=== PATIENT | female | born 1985 | race Caucasian/White ===

== ENCOUNTER 2017-03-25 13:10 | Emergency (ER) | payer OTHER ==
[~2017-03-25] VITALS: Ht 160 cm; Wt 68.0 kg
[~2017-03-25 13:10] MED LIST: ACET500C4 PO; ACHD5005 PO; ALPR.25T PO; ALPR1T PO; AMIT100T2 PO; AMIT25TA9 PO; AZIT-21 PO; BENZ100C18 PO; BSP5T; CEPH500C PO; CIPR7.5D2 RIGHT EAR; CLIN-62 PO; CYCL10TA9 PO; DCS100C PO; DICL75TA2 PO; DIPH25TA82 PO; DIPH50CA PO; DOXY100C2 PO; ESCI20TA2 PO; FAMO20TA5 PO; FLC100T1 PO; GLBR2.5T PO; GLYB5TAB6 PO; GUAI-653 PO; HUM100VI14 SQ; HYDR-2997 PO; HYDR-34 PO; HYDR-3820 PO; HYDR-700 PO; HYDR-757 PO; HYDR118S10 PO; HYDR1TAB8 PO; IBP600T1 PO; IBP800T PO; IBUP-1773 PO; INSA10V SC; INSASP10V SC; INSASP10V SQ; INSHRV SC; INSR1U SC; INSU100I10 SQ; INSU100I14 SQ; INSU100V13 SC; INSU100V6 SQ; METH4TAB PO; METR500T PO; MIRT15TA6 PO; NAPR-243 PO; NAPR500T PO; NAPR500T72 PO; NF-ESOM40C PO; NITR100C3 PO; ONDA4TAB11 PO; ONDA8TAB9 PO; ONDAN4ODT PO; ONDN4T PO; OSLT75C PO; PHEN200T27 PO; PRD20T PO; PREN1TAB14 PO; PRENATAL VITAMINS; PRM25T PO; QTP200T PO; QUET100T PO; QUET400T PO; QUET50TA43 PO; QUET50TA55 PO; RANI150T90 PO; RISP1TAB19 PO; SCR1T1 PO; SULF-222 PO; SULF1TAB35 PO; TRIA16.5 NS; VARE1TAB22 PO; [UNRECOGNIZED DRUG - OTHER]
[2017-03-25 14:34] LABS: BASOPHILS # (AUTO) 0.1 10^3/uL (0.0-0.1); BASOPHILS % (AUTO) 1 % (0-10); EOSINOPHILS # (AUTO) 0.2 10^3/uL (0.0-0.3); EOSINOPHILS % (AUTO) 2 % (0-10); LYMPHOCYTES # (AUTO) 2.1 X 10^3 (1.0-4.0); LYMPHOCYTES % (AUTO) 22 % (12-44); MEAN CORPUSCULAR HEMOGLOBIN 31 PG (25-34); MEAN CORPUSCULAR HGB CONC 36 G/DL (32-36); MEAN CORPUSCULAR VOLUME 85 FL (80-99); MEAN PLATELET VOLUME 12.1 FL (7.4-10.4); MONOCYTES # (AUTO) 0.6 X 10^3 (0.0-1.0); MONOCYTES % (AUTO) 6 % (0-12); NEUTROPHILS # (AUTO) 6.8 X 10^3 (1.8-7.8); NEUTROPHILS % (AUTO) 70 % (42-75); PLATELET COUNT 183 10^3/uL (130-400); RED BLOOD COUNT 4.82 10^6/uL (4.35-5.85); RED CELL DISTRIBUTION WIDTH 12.4 % (10.0-14.5); WHITE BLOOD COUNT 9.7 10^3/uL (4.3-11.0)
[2017-03-25 14:49] LABS: ALANINE AMINOTRANSFERASE 35 U/L (0-55); ALBUMIN 3.7 GM/DL (3.2-4.5); ANION GAP 7 MMOL/L (5-14); ASPARTATE AMINO TRANSFERASE 31 U/L (5-34); BILIRUBIN,TOTAL 0.5 MG/DL (0.1-1.0); BLOOD UREA NITROGEN 4 MG/DL (7-18); BUN/CREATININE RATIO 5; CALCIUM 8.5 MG/DL (8.5-10.1); CARBON DIOXIDE 26 MMOL/L (21-32); CHLORIDE 106 MMOL/L (98-107); CREATININE SERUM 0.74 MG/DL (0.60-1.30); GFR ESTIMATED > 60; GLUCOSE 123 MG/DL (70-105); POTASSIUM 3.5 MMOL/L (3.6-5.0); SODIUM 139 MMOL/L (135-145); TOTAL PROTEIN 7.6 GM/DL (6.4-8.2)
[2017-03-25 14:54] LABS: ERYTHROCYTE SEDIMENTATION RATE 12 MM/HR (0-20)
--- NOTE | 2017-03-25 15:43 | ED General ---
General Chief Complaint: General Problems/Pain Stated Complaint: RT ELBOW PAIN/KNOTS IN LEGS Nursing Triage Note: ARRIVED VIA AMB TO ROOM 03. COMPLAINTS OF RIGHT ELBOW PAIN FOR 2 MONTHS AND KNOTS ON HER LEGS THIS PAST MONTH. STATES SHE CALLED HER DR'S OFFICE WHOM TOLD HER TO COME TO THE ER SINCE SHE IS DIABETIC. Nursing Sepsis Screen: No Definite Risk Source of Information: Patient Exam Limitations: No Limitations History of Present Illness Time Seen by Provider: 15:38 Initial Comments The patient is a 32-year-old white female who presents today with complaints of pain in her right shoulder which has been present for several months. She recalls no specific injury. She notes some increase in pain from the elbow to the shoulder and with numbness which awakens her from sleep. She states that approximately one month ago she had a lesion on her left anterior haddad. She states that she was told this was a spider bite by critical access hospital and she was treated with antibiotics. She is continued to have a bumpy texture to the subcutaneous skin and believes that has moved further up the leg. She also states that her left leg swells increasingly during the day and then goes down at night when she is supine in bed. She states she is diabetic. Timing/Duration: Other Allergies and Home Medications Allergies Coded Allergies: Penicillins (Verified Allergy, Unknown, RECEIVED ROCEPHIN W/O PROBLEMS, ) PT STATES SHE LOSES HER AIRWAY WHEN GIVEN PCN Home Medications Cyclobenzaprine HCl 10 Mg Tablet, 10 MG PO Q8H PRN for SPASMS, #14 Ref 0 Prescribed by: FAMILIA FELIX on 06/14/161556 Hydrocodone/Acetaminophen 1 Each Tablet, 2 TAB PO TID PRN for PAIN, (Reported) Insulin Aspart 300 Units/3 Ml Solution, SQ UD, (Reported) USES PER SLIDING SCALE Insulin Glargine,Hum.rec.anlog 100 Unit/1 Ml Insuln.pen, 20 UNITS SQ HS, ( Reported) Naproxen 500 Mg Tablet, 500 MG PO BID PRN for PAIN, #20 Ref 0 Prescribed by: FAMILIA FELIX on 06/14/16 1557 Quetiapine Fumarate 100 Mg Tablet, 100 MG PO HS, (Reported) Constitutional: see HPI EENTM: no symptoms reported Respiratory: no symptoms reported Cardiovascular: no symptoms reported Gastrointestinal: no symptoms reported Genitourinary: no symptoms reported Musculoskeletal: see HPI, joint pain (right shoulder) Skin: lumps Psychiatric/Neurological: No Symptoms Reported Past Hbdyrls-Kufchl-Osakku Hx Patient Social History Alcohol Use: Past History Recreational Drug Use: Yes (Marijuana +) Type Used: Cigarettes Recent Foreign Travel: No Contact w/Someone Who Travel: No Recent Infectious Disease Expo: No Recent Hopitalizations: Yes (WHEN BROKE WRIST; ENTERITIS) Immunizations Up To Date Tetanus Booster (TDap): Unknown Date of Pneumonia Vaccine: Jun 29, 2012 Date of Influenza Vaccine: Apr 12, 2015 Seasonal Allergies Seasonal Allergies: No Surgeries History of Surgeries: Yes (cyst removal, LAP RIGHT REMOVAL OF ADRENAL MASS, RIGHT OPHORECTOMY) Surgeries: Section, Gallbladder Respiratory History of Respiratory Disorde: Yes (ASTHMA) Respiratory Disorders: Asthma Currently Using CPAP: No Currently Using BIPAP: No Cardiovascular History of Cardiac Disorders: No (MURMUR CHILD) Neurological History of Neurological Disord: Yes ("nerve pain") Reproductive System Hx Reproductive Disorders: No Sexually Transmitted Disease: No HIV/AIDS: No Female Reproductive Disorders: Ovarian Cyst Genitourinary Genitourinary Disorders: UTI-Chronic Gastrointestinal History of Gastrointestinal Di: Yes Gastrointestinal Disorders: Gastroesophageal Reflux, Hepatitis Musculoskeletal History of Musculoskeletal Dis: No Musculoskeletal Disorders: Arthritis Endocrine History of Endocrine Disorders: Yes Endocrine Disorders: Diabetes, Insulin dep HEENT Loss of Vision: Denies Hearing Impairment: Denies Cancer History of Cancer: Yes Cancer: Skin Psychosocial History of Psychiatric Problem: Yes (history of substance abuse) Behavioral Health Disorders: Anxiety, Bipolar Integumentary History of Skin or Integumenta: No Blood Transfusions History of Blood Disorders: Yes (ANEMIA/HEPATITIS C ) Adverse Reaction to a Blood Tr: No Family Medical History Significant Family History: No Pertinent Family Hx, Diabetes Family Medial History: Asthma 19 FATHER (COPD) G8 BROTHER (COPD) Completed stroke G8 SISTER Diabetes mellitus 19 FATHER 19 MOTHER G8 BROTHER G8 SISTER Gout 19 MOTHER Seizure disorder G8 SISTER Physical Exam Vital Signs Vital Sign - Last 12Hours 03/25/17 13:19 Temp 98.0 Pulse 103 Resp 18 B/P (MAP) 118/81 Pulse Ox 98 Capillary Refill : Less Than 3 Seconds General Appearance: Mild Distress Eyes: Bilateral Eye Normal Inspection HEENT: Normal ENT Inspection Neck: Full Range of Motion, Normal Inspection, Non Tender, Supple, Carotid Bruit Respiratory: Chest Non Tender Cardiovascular: Regular Rate, Rhythm, No Edema, No Gallop, No JVD, No Murmur, Normal Peripheral Pulses Comments There is pain to passive abduction of the right shoulder. Crepitus is noted. This is particularly evident after reaching 80. The left haddad shows a very modest edema and a faint pinkish discoloration. No discrete lumps are noted. No scars are noted. The patient reports tenderness to palpation. No streaking or warmth is noted. Progress/Results/Core Measures Results/Orders Lab Results Laboratory Tests Test 03/25/17 14:25 Range/Units White Blood Count 9.7 4.3-11.0 10^3/uL Red Blood Count 4.82 4.35-5.85 10^6/uL Hemoglobin 14.7 11.5-16.0 G/DL Hematocrit 41 35-52 % Mean Corpuscular Volume 85 80-99 FL Mean Corpuscular Hemoglobin 31 25-34 PG Mean Corpuscular Hemoglobin Concent 36 32-36 G/DL Red Cell Distribution Width 12.4 10.0-14.5 % Platelet Count 183 130-400 10^3/uL Mean Platelet Volume 12.1 H 7.4-10.4 FL Neutrophils (%) (Auto) 70 42-75 % Lymphocytes (%) (Auto) 22 12-44 % Monocytes (%) (Auto) 6 0-12 % Eosinophils (%) (Auto) 2 0-10 % Basophils (%) (Auto) 1 0-10 % Neutrophils # (Auto) 6.8 1.8-7.8 X 10^3 Lymphocytes # (Auto) 2.1 1.0-4.0 X 10^3 Monocytes # (Auto) 0.6 0.0-1.0 X 10^3 Eosinophils # (Auto) 0.2 0.0-0.3 10^3/uL Basophils # (Auto) 0.1 0.0-0.1 10^3/uL Erythrocyte Sedimentation Rate 12 0-20 MM/HR Sodium Level 139 135-145 MMOL/L Potassium Level 3.5 L 3.6-5.0 MMOL/L Chloride Level 106 98-107 MMOL/L Carbon Dioxide Level 26 21-32 MMOL/L Anion Gap 7 5-14 MMOL/L Blood Urea Nitrogen 4 L 7-18 MG/DL Creatinine 0.74 0.60-1.30 MG/DL Estimat Glomerular Filtration Rate > 60 BUN/Creatinine Ratio 5 Glucose Level 123 H 70-105 MG/DL Calcium Level 8.5 8.5-10.1 MG/DL Total Bilirubin 0.5 0.1-1.0 MG/DL Aspartate Amino Transf (AST/SGOT) 31 5-34 U/L Alanine Aminotransferase (ALT/SGPT) 35 0-55 U/L Alkaline Phosphatase 67 40-136 U/L Total Protein 7.6 6.4-8.2 GM/DL Albumin 3.7 3.2-4.5 GM/DL My Orders Orders - SALLY FINE MD Cbc With Automated Diff (03/25/17 14:05) Comprehensive Metabolic Panel (03/25/17 14:05) Erythrocyte Sedimentation Rate (03/25/17 14:05) Shoulder, Right, 3 Views (03/25/17 15:35) Vital Signs/I&O Vital Sign - Last 12Hours 03/25/17 13:19 Temp 98.0 Pulse 103 Resp 18 B/P (MAP) 118/81 Pulse Ox 98 Blood Pressure Mean: 93 Departure Impression Impression: Primary Impression: shoulder impingement, right Additional Impression: venous stasis edema left lower extremity Disposition: 01 HOME, SELF-CARE Condition: Stable/Unchanged Departure-Patient Inst. Decision time for Depature: 16:10 Referrals: [facility] (PCP/Family) Primary Care Physician Patient Instructions: CHRONIC PAIN Add. Discharge Instructions: All discharge instructions reviewed with patient and/or family. Voiced understanding Obtain and use support stockings. Place them immediately on arising in the morning and remove at bedtime. Make appointment at critical access hospital for consideration of a cortisone injection in the right shoulder. SALLY FINE MD Mar 25, 2017 15:43
--- NOTE | 2017-03-25 16:06 | Diagnostic Imaging Report ---
INDICATION: Right shoulder pain for two weeks. FINDINGS: Four views of the right shoulder show no fracture, dislocation, or other acute abnormalities. IMPRESSION: Negative right shoulder. Dictated by: Dictated on workstation # [id number]
[2017-03-25 16:32] VITALS: BP 115/79
== END 2017-03-25 16:32 | disposition home or self-care (01) ==
LOC: EDUNIT# 13:10 → ER 13:13
DX: M25.811 Other specified joint disorders, right shoulder (principal); I87.009 Postthrombotic syndrome without complications of unspecified extremity; F41.9 Anxiety disorder, unspecified; F31.9 Bipolar disorder, unspecified; E11.9 Type 2 diabetes mellitus without complications; K21.9 Gastro-esophageal reflux disease without esophagitis; J45.909 Unspecified asthma, uncomplicated; F12.90 Cannabis use, unspecified, uncomplicated; Z87.42 Personal history of other diseases of the female genital tract; Z87.19 Personal history of other diseases of the digestive system; Z85.828 Personal history of other malignant neoplasm of skin; Z98.51 Tubal ligation status; Z90.721 Acquired absence of ovaries, unilateral
CPT/HCPCS: 36415; 73030; 80053; 85025; 85652; 99281

== ENCOUNTER → 2017-04-22 | Outpatient (CLI) | payer OTHER ==
--- NOTE | 2017-04-22 14:45 | Diagnostic Imaging Report ---
PROCEDURE: US left lower extremity venous. TECHNIQUE: Multiple real-time grayscale images were obtained over the left lower extremity in various projections. Additional duplex Doppler and color Doppler images were also obtained. INDICATION: EXAMINATION: Left lower extremity duplex venous ultrasound. TECHNIQUE: DVT protocol. Multiple sonographic images with color Doppler and waveform interrogation were performed of the left lower extremity veins with compression and augmentation maneuvers. INDICATION: Left leg swelling. FINDINGS: The left lower extremity veins from the groin to below the knee veins were examined with normal color-flow, compressibility and waveform demonstrated. IMPRESSION: No evidence of DVT in the left lower extremity. Dictated by: Dictated on workstation # [id number]
== END ==
LOC: RAD 13:45
PROVIDERS: ATTEND Nurse Practitioner Family
DX: M79.89 Other specified soft tissue disorders (principal)

== ENCOUNTER 2017-12-26 08:29 | Emergency (ER) | payer OTHER ==
[~2017-12-26] VITALS: Ht 165.1 cm; Wt 69.4 kg
[~2017-12-26 08:29] MED LIST changes: +NAPR-1071 PO; -NAPR500T PO
[2017-12-26] MEDS ORDERED: NS IV 1000 ML 1,000 ML IV ONE (09:17)
[2017-12-26] MEDS ORDERED: ONDANSETRON 4 MG/2 ML (SDV) Z0FRAN IVP ONE (09:30)
[2017-12-26 09:43] LABS: BASOPHILS # (AUTO) 0.1 10^3/uL (0.0-0.1); BASOPHILS % (AUTO) 1 % (0-10); EOSINOPHILS # (AUTO) 0.1 10^3/uL (0.0-0.3); EOSINOPHILS % (AUTO) 1 % (0-10); HEMATOCRIT 39 % (35-52); LYMPHOCYTES # (AUTO) 2.1 X 10^3 (1.0-4.0); LYMPHOCYTES % (AUTO) 20 % (12-44); MEAN CORPUSCULAR HEMOGLOBIN 33 PG (25-34); MEAN CORPUSCULAR HGB CONC 39 G/DL (32-36); MEAN CORPUSCULAR VOLUME 86 FL (80-99); MEAN PLATELET VOLUME 13.2 FL (7.4-10.4); MONOCYTES # (AUTO) 0.7 X 10^3 (0.0-1.0); MONOCYTES % (AUTO) 7 % (0-12); NEUTROPHILS # (AUTO) 7.5 X 10^3 (1.8-7.8); NEUTROPHILS % (AUTO) 72 % (42-75); PLATELET COUNT 145 10^3/uL (130-400); RED BLOOD COUNT 4.53 10^6/uL (4.35-5.85); RED CELL DISTRIBUTION WIDTH 12.1 % (10.0-14.5); WHITE BLOOD COUNT 10.4 10^3/uL (4.3-11.0)
[2017-12-26 10:02] LABS: ALANINE AMINOTRANSFERASE 45 U/L (0-55); ALBUMIN 3.8 GM/DL (3.2-4.5); ALKALINE PHOSPHATASE 64 U/L (40-136); BILIRUBIN,TOTAL 1.1 MG/DL (0.1-1.0); BUN/CREATININE RATIO 10; CALCIUM 9.3 MG/DL (8.5-10.1); CARBON DIOXIDE 21 MMOL/L (21-32); CHLORIDE 106 MMOL/L (98-107); CREATININE SERUM 0.77 MG/DL (0.60-1.30); GFR ESTIMATED > 60; GLUCOSE 125 MG/DL (70-105); POTASSIUM 3.4 MMOL/L (3.6-5.0); SODIUM 137 MMOL/L (135-145); TOTAL PROTEIN 7.4 GM/DL (6.4-8.2)
--- NOTE | 2017-12-26 10:11 | ED Abdominal Pain ---
General Chief Complaint: Abdominal/GI Problems Stated Complaint: VOMITTING, DIARHEA Nursing Triage Note: TO ROOM C/O ABD PAIN,DIARHEA,VOMITING FOR 2 WEEKS. REPORTS HER BLOOD SUGAR HAS BEEN GOOD. REQUEST WORK NOTE ON DISCHARGE DUE TO SHE LEFT WORK Sepsis Screen: No Definite Risk Source of Information: Patient Exam Limitations: No Limitations History of Present Illness Date Seen by Provider: Dec 26, 2017 Time Seen by Provider: 09:10 Initial Comments Here with report of abdominal pain, vomiting, diarrhea and overall not feeling well for the last 2 weeks. She was seen by her work doctor on Thursday and had labs drawn. Apparently her white blood cell count was elevated. Pain continued as well as vomiting and diarrhea through today. She called the work doctor who told her to go to the ER for further evaluation as she had an elevated white blood count. Presents with lower abdominal pain and diarrhea. Pain noted over suprapubic regions and right lower quadrant. Does have history of multiple ovarian cysts and states that she's had to have some of those removed surgically. She still has her appendix but has had a cholecystectomy. She is diabetic but states her blood sugars have been okay. Denies dysuria. Denies blood in urine or stools. Timing/Duration: Changing Over Time, Getting Worse, Other (2 weeks) Severity/Quality: Moderate, Aching Location: RLQ, Suprapubic Radiation: LLQ Activities at Onset: None Modifying Factors: Improves With Defecating; Worsens With Eating Associated Symptoms: No Back Pain, No Chest Pain, No Fever/Chills; Fatigue, Nausea/Vomiting; No Weakness Allergies and Home Medications Allergies Coded Allergies: Penicillins (Verified Allergy, Unknown, RECEIVED ROCEPHIN W/O PROBLEMS, ) PT STATES SHE LOSES HER AIRWAY WHEN GIVEN PCN Home Medications Cyclobenzaprine HCl 10 Mg Tablet, 10 MG PO Q8H PRN for SPASMS Prescribed by: FAMILIA FELIX on 06/14/16 8237 Hydrocodone/Acetaminophen 1 Each Tablet, 2 TAB PO TID PRN for PAIN, (Reported) Insulin Aspart 300 Units/3 Ml Solution, SQ UD, (Reported) USES PER SLIDING SCALE Insulin Glargine,Hum.rec.anlog 100 Unit/1 Ml Insuln.pen, 20 UNITS SQ HS, ( Reported) Naproxen 500 Mg Tablet, 500 MG PO BID PRN for PAIN Prescribed by: FAMILIA FELIX on 06/14/16 1557 Quetiapine Fumarate 100 Mg Tablet, 100 MG PO HS, (Reported) Patient Home Medication List Home Medication List Reviewed: Yes Review of Systems Constitutional: see HPI; No chills, No fever EENTM: No Symptoms Reported Respiratory: No Symptoms Reported Cardiovascular: No Symptoms Reported Gastrointestinal: See HPI, Abdominal Pain, Diarrhea, Nausea, Vomiting Genitourinary: No Symptoms Reported Musculoskeletal: no symptoms reported Skin: no symptoms reported Psychiatric/Neurological: No Symptoms Reported All Other Systems Reviewed Negative Unless Noted: Yes Past Orfsiqs-Mmkwre-Ozdxzi Hx Past Med/Social Hx: Reviewed Nursing Past Med/Soc Hx Patient Social History Alcohol Use: Denies Use Recreational Drug Use: Yes (Marijuana +) Smoking Status: Current Everyday Smoker Type Used: Cigarettes Recent Foreign Travel: No Contact w/Someone Who Travel: No Recent Infectious Disease Expo: No Recent Hopitalizations: Yes (WHEN BROKE WRIST; ENTERITIS) Immunizations Up To Date Tetanus Booster (TDap): Unknown Date of Pneumonia Vaccine: Jun 29, 2012 Date of Influenza Vaccine: Apr 12, 2015 Seasonal Allergies Seasonal Allergies: No Past Medical History Surgeries: Yes (cyst removal, LAP RIGHT REMOVAL OF ADRENAL MASS, RIGHT OPHORECTOMY) Section, Gallbladder Respiratory: Yes (ASTHMA) Asthma Currently Using CPAP: No Currently Using BIPAP: No Cardiac: No (MURMUR CHILD) Neurological: Yes ("nerve pain") Reproductive Disorders: No Female Reproductive Disorders: Ovarian Cyst Sexually Transmitted Disease: No HIV/AIDS: No UTI-Chronic Gastrointestinal: Yes Gastroesophageal Reflux, Hepatitis Musculoskeletal: No Arthritis Endocrine: Yes Diabetes, Insulin dep Loss of Vision: Denies Hearing Impairment: Denies Cancer: Yes Skin Psychosocial: Yes (history of substance abuse) Anxiety, Bipolar Integumentary: No Blood Disorders: Yes (ANEMIA/HEPATITIS C ) Adverse Reaction/Blood Tranf: No Family Medical History Reviewed Nursing Family Hx Asthma 19 FATHER (COPD) G8 BROTHER (COPD) Completed stroke G8 SISTER Diabetes mellitus 19 FATHER 19 MOTHER G8 BROTHER G8 SISTER Gout 19 MOTHER Seizure disorder G8 SISTER No Pertinent Family Hx, Diabetes Physical Exam Vital Signs Vital Signs - First Documented 12/26/17 08:45 Temp 96.8 Pulse 105 Resp 18 B/P (MAP) 103/63 (76) Pulse Ox 96 O2 Delivery Room Air Capillary Refill : Less Than 3 Seconds General Appearance: WD/WN, no apparent distress HEENT: PERRL/EOMI, pharynx normal Neck: full range of motion, supple Respiratory: lungs clear, normal breath sounds Cardiovascular: regular rate, rhythm, no murmur Gastrointestinal: soft; No guarding, No rebound; tenderness (suprapubic and right lower quadrant) Extremities: non-tender, normal inspection Back: normal inspection, no CVA tenderness, no vertebral tenderness Neurologic/Psychiatric: no motor/sensory deficits, alert Skin: normal color, warm/dry Progress/Results/Core Measures Results/Orders Lab Results Laboratory Tests Test 12/26/17 09:30 12/26/17 11:12 Range/Units White Blood Count 10.4 4.3-11.0 10^3/uL Red Blood Count 4.53 4.35-5.85 10^6/uL Hemoglobin 15.0 11.5-16.0 G/DL Hematocrit 39 35-52 % Mean Corpuscular Volume 86 80-99 FL Mean Corpuscular Hemoglobin 33 25-34 PG Mean Corpuscular Hemoglobin Concent 39 H 32-36 G/DL Red Cell Distribution Width 12.1 10.0-14.5 % Platelet Count 145 130-400 10^3/uL Mean Platelet Volume 13.2 H 7.4-10.4 FL Neutrophils (%) (Auto) 72 42-75 % Lymphocytes (%) (Auto) 20 12-44 % Monocytes (%) (Auto) 7 0-12 % Eosinophils (%) (Auto) 1 0-10 % Basophils (%) (Auto) 1 0-10 % Neutrophils # (Auto) 7.5 1.8-7.8 X 10^3 Lymphocytes # (Auto) 2.1 1.0-4.0 X 10^3 Monocytes # (Auto) 0.7 0.0-1.0 X 10^3 Eosinophils # (Auto) 0.1 0.0-0.3 10^3/uL Basophils # (Auto) 0.1 0.0-0.1 10^3/uL Sodium Level 137 135-145 MMOL/L Potassium Level 3.4 L 3.6-5.0 MMOL/L Chloride Level 106 98-107 MMOL/L Carbon Dioxide Level 21 21-32 MMOL/L Anion Gap 10 5-14 MMOL/L Blood Urea Nitrogen 8 7-18 MG/DL Creatinine 0.77 0.60-1.30 MG/DL Estimat Glomerular Filtration Rate > 60 BUN/Creatinine Ratio 10 Glucose Level 125 H 70-105 MG/DL Calcium Level 9.3 8.5-10.1 MG/DL Total Bilirubin 1.1 H 0.1-1.0 MG/DL Aspartate Amino Transf (AST/SGOT) 32 5-34 U/L Alanine Aminotransferase (ALT/SGPT) 45 0-55 U/L Alkaline Phosphatase 64 40-136 U/L Total Protein 7.4 6.4-8.2 GM/DL Albumin 3.8 3.2-4.5 GM/DL Urine Color YELLOW Urine Clarity SLIGHTLY CLOUDY Urine pH 6.5 5-9 Urine Specific [place] 1.005 L 1.016-1.022 Urine Protein 1+ H NEGATIVE Urine Glucose (UA) NEGATIVE NEGATIVE Urine Ketones NEGATIVE NEGATIVE Urine Nitrite NEGATIVE NEGATIVE Urine Bilirubin NEGATIVE NEGATIVE Urine Urobilinogen NORMAL NORMAL MG/DL Urine Leukocyte Esterase NEGATIVE NEGATIVE Urine RBC (Auto) NEGATIVE NEGATIVE Urine RBC NONE /HPF Urine WBC NONE /HPF Urine Crystals NONE /LPF Urine Bacteria TRACE /HPF Urine Casts NONE /LPF Urine Mucus NEGATIVE /LPF Urine Culture Indicated NO My Orders Orders - ALE FABIAN MD Cbc With Automated Diff (12/26/17 09:17) Comprehensive Metabolic Panel (12/26/17 09:17) Ua Culture If Indicated (12/26/17 09:17) Saline Lock/Iv-Start (12/26/17 09:17) Ns Iv 1000 Ml (Sodium Chloride 0.9%) (12/26/17 09:17) Ondansetron Injection (Zofran Injectio (12/26/17 09:30) Ct Abdomen/Pelvis W (12/26/17 10:05) Iohexol Injection (Omnipaque 350 Mg/Ml 1 (12/26/17 10:15) Ns (Ivpb) (Sodium Chloride 0.9% Ivpb Bag (12/26/17 10:15) Medications Given in ED Current Medications Medications Dose Ordered Sig/Pamela Route Start Time Stop Time Status Last Admin Dose Admin Iohexol 100 ml ONCE ONCE IV 12/26/17 10:15 12/26/17 10:36 DC 12/26/17 10:27 100 ML Ondansetron HCl 4 mg ONCE ONCE IVP 12/26/17 09:30 12/26/17 09:31 DC 12/26/17 09:37 4 MG Sodium Chloride 100 ml ONCE ONCE IV 12/26/17 10:15 12/26/17 10:36 DC 12/26/17 10:27 100 ML Sodium Chloride 1,000 ml @ 0 mls/hr Q0M ONCE IV 12/26/17 09:17 12/26/17 09:20 DC 12/26/17 09:37 1,000 MLS/HR Vital Signs/I&O 12/26/17 08:45 Temp 96.8 Pulse 105 Resp 18 B/P (MAP) 103/63 (76) Pulse Ox 96 O2 Delivery Room Air Blood Pressure Mean: 76 Progress Progress Note : Progress Note Seen and evaluated. IV, labs and UA ordered. Normal saline 1 L bolus. Zofran [address] abdomen pelvis ordered due to right lower quadrant pain and history of ovarian cyst requiring surgical intervention. Monitor patient. 1140: UA obtained and results reviewed. I did review the case with Dr. Darden. He is recommending follow-up for colonoscopy at this point. I did discuss this with the patient and she has follow-up appointment set with Dr. Garcia on January 06 and she was instructed to ensure she keeps that appointment. Otherwise no significant findings. Discharged home with return precautions. Patient verbalize understanding instructions and agreement with plan. Diagnostic Imaging Diagonstic Imaging: CT Plain Films/CT/US/NM/MRI: abdomen, pelvis Comments VIA [facility]. [place], [place] NAME: MALGORZATA GONZALEZ [facility] REC#: [id number] PT STATUS: REG ER : 1985 PHYSICIAN: ALE FABIAN MD ADMIT DATE: 12/26/17/ER Draft Date of Exam:12/26/17 CT ABDOMEN/PELVIS W PROCEDURE: CT abdomen and pelvis with contrast. TECHNIQUE: Multiple contiguous axial images were obtained through the abdomen and pelvis after administration of intravenous contrast. INDICATION: Leukocytosis, lower abdominal pain with nausea, vomiting, and diarrhea x2 weeks. CORRELATION STUDY: 08/20/2015. FINDINGS: LOWER THORAX: Clear. Slight wall thickening low esophagus. LIVER: Dome of the liver incompletely imaged. Some degree of hepatic steatosis is present. No focal lesion. GALLBLADDER: Absent with clips in the fossa. SPLEEN: Unremarkable. PANCREAS: Unremarkable. ADRENAL GLANDS: Unremarkable. KIDNEYS: Normal configuration. No calcification or obstruction. ABDOMINAL AORTA: Unremarkable, nonaneurysmal. GASTROINTESTINAL TRACT: The cecum is low within the pelvis. The appendix is not discretely localized. There are some areas of asymmetric wall thickening of the colon particularly involving the transverse colon but also segments of the ascending and descending colon. There also appears to be some suggested thickening of distal small bowel in the right lower quadrant. Additional areas of thickened small bowel in the mid abdomen. No obstructive appearance. No abdominal ascites or free air. URINARY BLADDER: Relatively decompressed but otherwise unremarkable. REPRODUCTIVE: Uterus is slightly retroverted and deviated towards the left and contains an intrauterine contraceptive device. OSSEOUS STRUCTURES: No acute abnormality. OTHER: None. IMPRESSION: 1. Prominent areas of asymmetric small bowel and colon thickening suggestive for nonspecific enterocolitis. The appendix is not definitively visualized and therefore cannot be cleared. 2. Post cholecystectomy. Dictated on workstation # [id number] Dict: 12/26/17 1047 Trans: 12/26/17 1105 [id number] Interpreted by: NIGEL WHITTINGTON DO Electronically signed by: Departure Impression Primary Impression: Lower abdominal pain Additional Impression: Enteritis Disposition: 01 HOME, SELF-CARE Condition: Stable Departure-Patient Inst. Decision time for Depature: 11:46 Referrals: BRAULIO ASHER DO (PCP) Primary Care Physician CRIS VILLASEÑOR (Family) Primary Care Physician Patient Instructions: Acute Abdomen (Belly Pain), Adult (DC), Diarrhea and Traveler's Diarrhea, Adult (DC) Add. Discharge Instructions: All discharge instructions reviewed with patient and/or family. Voiced understanding. Clear liquid diet for 24 hours and then advance as tolerated. Keep appointment on January 06 scheduled. You should consider initiating probiotics. You can pick this up [id number] and take per package instructions. Follow-up with your DrMagui in a few days for recheck. Return for worse pain, fever, vomiting, weakness, breathing problems or other concerns as needed. Work/School Note: Work Release Form Date Seen in the Emergency Department: Dec 26, 2017 Return to Work: Dec 28, 2017 Restrictions: No Restrictions Copy Copies To 1: RODO GARCIA TIMOTHY D MD Dec 26, 2017 10:11
[2017-12-26] MEDS ORDERED: IOHEXOL 350 MG/ML 100 ML (OMNIPAQUE 350) VIAL IV ONE (10:15)
[2017-12-26] MEDS ORDERED: NS 100 ML (IVPB) BAG IV ONE (10:15)
--- NOTE | 2017-12-26 11:05 | Diagnostic Imaging Report ---
PROCEDURE: CT abdomen and pelvis with contrast. TECHNIQUE: Multiple contiguous axial images were obtained through the abdomen and pelvis after administration of intravenous contrast. INDICATION: Leukocytosis, lower abdominal pain with nausea, vomiting, and diarrhea x2 weeks. CORRELATION STUDY: 08/20/2015. FINDINGS: LOWER THORAX: Clear. Slight wall thickening low esophagus. LIVER: Dome of the liver incompletely imaged. Some degree of hepatic steatosis is present. No focal lesion. GALLBLADDER: Absent with clips in the fossa. SPLEEN: Unremarkable. PANCREAS: Unremarkable. ADRENAL GLANDS: Unremarkable. KIDNEYS: Normal configuration. No calcification or obstruction. ABDOMINAL AORTA: Unremarkable, nonaneurysmal. GASTROINTESTINAL TRACT: The cecum is low within the pelvis. The appendix is not discretely localized. There are some areas of asymmetric wall thickening of the colon particularly involving the transverse colon but also segments of the ascending and descending colon. There also appears to be some suggested thickening of distal small bowel in the right lower quadrant. Additional areas of thickened small bowel in the mid abdomen. No obstructive appearance. No abdominal ascites or free air. URINARY BLADDER: Relatively decompressed but otherwise unremarkable. REPRODUCTIVE: Uterus is slightly retroverted and deviated towards the left and contains an intrauterine contraceptive device. OSSEOUS STRUCTURES: No acute abnormality. OTHER: None. IMPRESSION: 1. Prominent areas of asymmetric small bowel and colon thickening suggestive for nonspecific enterocolitis. The appendix is not definitively visualized and therefore cannot be cleared. 2. Post cholecystectomy. Dictated by: Dictated on workstation # [id number]
[2017-12-26 11:28] LABS: BILIRUBIN,URINE NEGATIVE (NEGATIVE); CLARITY,URINE SLIGHTLY CLOUDY; COLOR,URINE YELLOW; GLUCOSE, URINE (UA) NEGATIVE (NEGATIVE); KETONES,URINE NEGATIVE (NEGATIVE); LEUKOCYTE ESTERASE ,URINE NEGATIVE (NEGATIVE); NITRITE,URINE NEGATIVE (NEGATIVE); PH,URINE 6.5 (5-9); PROTEIN,URINE 1+ (NEGATIVE); UROBILINOGEN,URINE NORMAL (NORMAL)
[2017-12-26 11:37] LABS: BACTERIA,URINE TRACE /HPF
[2017-12-26 12:01] VITALS: BP 113/66
== END 2017-12-26 12:02 | disposition home or self-care (01) ==
LOC: EDUNIT# 08:29 → ER 08:32
DX: K52.9 Noninfective gastroenteritis and colitis, unspecified (principal); J45.909 Unspecified asthma, uncomplicated; K21.9 Gastro-esophageal reflux disease without esophagitis; D64.9 Anemia, unspecified; E11.9 Type 2 diabetes mellitus without complications; F41.9 Anxiety disorder, unspecified; F31.9 Bipolar disorder, unspecified; F17.210 Nicotine dependence, cigarettes, uncomplicated; Z87.59 Personal history of other complications of pregnancy, childbirth and the puerperium; Z87.42 Personal history of other diseases of the female genital tract; Z90.721 Acquired absence of ovaries, unilateral
CPT/HCPCS: 36415; 74177; 80053; 81000; 85025; 96361; 96374

== ENCOUNTER 2018-08-01 20:24 | Emergency (ER) | payer OTHER ==
[~2018-08-01] VITALS: Ht 165.1 cm; Wt 54.4 kg
[2018-08-01] MEDS ORDERED: HYDROcodone/APAP 5 MG/325 MG (LORTAB) TAB PO ONE (22:00)
--- NOTE | 2018-08-01 22:11 | NUR ---
THIS RN PROVIDED PT A DENTURE CUP AT THIS TIME SO SHE CAN REMOVE BOTH HER UPPER ET LOWER PLATES.
--- NOTE | 2018-08-01 22:18 | NUR ---
REPORT TO GERARDO BARRY
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
[2018-08-01 22:30] VITALS: BP 135/80
--- NOTE | 2018-08-01 22:46 | Diagnostic Imaging Report ---
PROCEDURE: CT maxillofacial without contrast. TECHNIQUE: Multiple contiguous axial images were obtained through the facial bones without the use of intravenous contrast. INDICATION: Trauma The previous CT facial bone exam of 11/21/2013 failed to show any sign of an acute fracture. On this study, the orbital rims, zygomatic arches, nasal bone and mandible are intact. In the interval since the prior study, however, fairly severe bilateral maxillary sinusitis has developed. The sinuses are otherwise clear. The orbits are symmetrical and within normal limits. The intracranial contents, where visualized, are unremarkable. IMPRESSION: 1. There is no evidence for an acute bony abnormality. 2. There is fairly severe bilateral maxillary sinusitis. Dictated by: Dictated on workstation # [id number]
== END 2018-08-01 22:30 | disposition home or self-care (01) ==
LOC: EDUNIT# 20:24 → ER 20:26
DX: R68.84 Jaw pain (principal); J45.909 Unspecified asthma, uncomplicated; K21.9 Gastro-esophageal reflux disease without esophagitis; E11.9 Type 2 diabetes mellitus without complications; F41.9 Anxiety disorder, unspecified; F31.9 Bipolar disorder, unspecified; Z85.828 Personal history of other malignant neoplasm of skin; Z87.19 Personal history of other diseases of the digestive system; Z87.440 Personal history of urinary (tract) infections; Z87.448 Personal history of other diseases of urinary system; Z88.0 Allergy status to penicillin; Z79.4 Long term (current) use of insulin; Z98.890 Other specified postprocedural states; Y04.8XXA Assault by other bodily force, initial encounter
CPT/HCPCS: 70486

== ENCOUNTER 2018-11-07 11:28 | Emergency (ER) | payer OTHER ==
[~2018-11-07] VITALS: Ht 170.2 cm; Wt 63.5 kg
[2018-11-07] MEDS ORDERED: KETOROLAC 30 MG/ML VIAL IVP ONE (11:45)
[2018-11-07] MEDS ORDERED: NS IV 1000 ML 1,000 ML IV SCH (11:45)
[2018-11-07 12:07] LABS: BASOPHILS % (AUTO) 0 % (0-10); EOSINOPHILS # (AUTO) 0.1 10^3/uL (0.0-0.3); EOSINOPHILS % (AUTO) 1 % (0-10); HEMATOCRIT 41 % (35-52); HEMOGLOBIN 15.1 G/DL (11.5-16.0); LYMPHOCYTES # (AUTO) 1.9 X 10^3 (1.0-4.0); LYMPHOCYTES % (AUTO) 17 % (12-44); MEAN CORPUSCULAR HEMOGLOBIN 32 PG (25-34); MEAN CORPUSCULAR HGB CONC 37 G/DL (32-36); MEAN CORPUSCULAR VOLUME 88 FL (80-99); MEAN PLATELET VOLUME 13.6 FL (7.4-10.4); MONOCYTES # (AUTO) 1.5 X 10^3 (0.0-1.0); MONOCYTES % (AUTO) 13 % (0-12); NEUTROPHILS % (AUTO) 69 % (42-75); PLATELET COUNT 99 10^3/uL (130-400); RED CELL DISTRIBUTION WIDTH 13.1 % (10.0-14.5); WHITE BLOOD COUNT 11.6 10^3/uL (4.3-11.0)
[2018-11-07 12:29] LABS: ALANINE AMINOTRANSFERASE 102 U/L (0-55); ALKALINE PHOSPHATASE 61 U/L (40-136); AMYLASE 30 U/L (25-125); BILIRUBIN,TOTAL 0.8 MG/DL (0.1-1.0); BUN/CREATININE RATIO 6; CALCIUM 9.3 MG/DL (8.5-10.1); CARBON DIOXIDE 19 MMOL/L (21-32); CHLORIDE 105 MMOL/L (98-107); CREATININE SERUM 0.82 MG/DL (0.60-1.30); GFR ESTIMATED > 60; GLUCOSE 171 MG/DL (70-105); LIPASE 8 U/L (8-78); SODIUM 137 MMOL/L (135-145); TOTAL PROTEIN 7.9 GM/DL (6.4-8.2)
[2018-11-07 13:46] LABS: BILIRUBIN,URINE NEGATIVE (NEGATIVE); CLARITY,URINE CLEAR; COLOR,URINE YELLOW; GLUCOSE, URINE (UA) NEGATIVE (NEGATIVE); KETONES,URINE NEGATIVE (NEGATIVE); LEUKOCYTE ESTERASE ,URINE 2+ (NEGATIVE); NITRITE,URINE NEGATIVE (NEGATIVE); PH,URINE 6.5 (5-9); PROTEIN,URINE NEGATIVE (NEGATIVE); UROBILINOGEN,URINE NORMAL (NORMAL)
[2018-11-07 13:55] LABS: BACTERIA,URINE TRACE /HPF
[2018-11-07] MEDS ORDERED: ACHD5005 PO (14:11)
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
[2018-11-07 14:25] VITALS: BP 114/65
== END 2018-11-07 14:25 | disposition home or self-care (01) ==
LOC: EDUNIT# 11:28 → ER 11:29
DX: N92.6 Irregular menstruation, unspecified (principal); J45.909 Unspecified asthma, uncomplicated; K21.9 Gastro-esophageal reflux disease without esophagitis; F41.9 Anxiety disorder, unspecified; F31.9 Bipolar disorder, unspecified; D64.9 Anemia, unspecified; B19.20 Unspecified viral hepatitis C without hepatic coma; E11.9 Type 2 diabetes mellitus without complications; F17.210 Nicotine dependence, cigarettes, uncomplicated; Z88.0 Allergy status to penicillin; Z79.4 Long term (current) use of insulin; Z98.890 Other specified postprocedural states; Z87.19 Personal history of other diseases of the digestive system; Z85.828 Personal history of other malignant neoplasm of skin; Z87.448 Personal history of other diseases of urinary system; Z87.440 Personal history of urinary (tract) infections
CPT/HCPCS: 36415; 80053; 81000; 82150; 83690; 84703; 85025

== ENCOUNTER 2019-07-18 08:48 | Emergency (ER) | payer OTHER ==
[~2019-07-18] VITALS: Ht 170 cm; Wt 59.0 kg
[2019-07-18 09:14] LABS: BASOPHILS # (AUTO) 0.1 10^3/uL (0.0-0.1); BASOPHILS % (AUTO) 0 % (0-10); EOSINOPHILS # (AUTO) 0.2 10^3/uL (0.0-0.3); EOSINOPHILS % (AUTO) 1 % (0-10); HEMATOCRIT 46 % (35-52); HEMOGLOBIN 16.6 G/DL (11.5-16.0); LYMPHOCYTES # (AUTO) 2.3 X 10^3 (1.0-4.0); LYMPHOCYTES % (AUTO) 18 % (12-44); MEAN CORPUSCULAR HEMOGLOBIN 33 PG (25-34); MEAN CORPUSCULAR HGB CONC 37 G/DL (32-36); MEAN CORPUSCULAR VOLUME 91 FL (80-99); MEAN PLATELET VOLUME 12.7 FL (7.4-10.4); MONOCYTES # (AUTO) 1.1 X 10^3 (0.0-1.0); MONOCYTES % (AUTO) 9 % (0-12); NEUTROPHILS % (AUTO) 71 % (42-75); PLATELET COUNT 128 10^3/uL (130-400); RED CELL DISTRIBUTION WIDTH 13.2 % (10.0-14.5); WHITE BLOOD COUNT 12.6 10^3/uL (4.3-11.0)
--- NOTE | 2019-07-18 09:15 | NUR ---
PT REPORTS THAT SHE DOES SMOKE POT AND DID YESTERDAY, WHEN INTIALLY DENIED DRUG USE
--- NOTE | 2019-07-18 09:18 | Diagnostic Imaging Report ---
PROCEDURE: CT head wo r/o stroke. TECHNIQUE: Multiple contiguous axial images were obtained through the brain without the use of intravenous contrast. Auto Exposure Controls were utilized during the CT exam to meet ALARA standards for radiation dose reduction. All CT scans use one or more of the following dose optimizing techniques: automated exposure control, MA and/or KvP adjustment based on patient size and exam type or iterative reconstruction. INDICATION: Acute stroke, left-sided weakness. COMPARISON: Comparison is made with prior head CT from 11/21/2013. FINDINGS: There is an acute intraparenchymal hematoma along the lateral right thalamus measuring 12 mm AP diameter. There is no hydrocephalus. No mass effect or midline shift is identified. No extra-axial hemorrhage is seen. Cisterns are patent. The visualized paranasal sinuses are clear. IMPRESSION: Acute right-sided intraparenchymal hemorrhage along the lateral right thalamus, perhaps on a hypertensive basis. No other abnormalities are detected. Results were discussed with Dr. Aguilar prior to this dictation. Dictated by: Dictated on workstation # [id number]
[2019-07-18 09:27] LABS: FIBRIN DEGRADATION PRODUCTS 0.4 UG/ML (0.00-0.49); INR 0.9 (0.8-1.4)
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
[2019-07-18 09:31] LABS: ALANINE AMINOTRANSFERASE 198 U/L (0-55); ALBUMIN 4.3 GM/DL (3.2-4.5); ALKALINE PHOSPHATASE 76 U/L (40-136); BILIRUBIN,TOTAL 0.8 MG/DL (0.1-1.0); BUN/CREATININE RATIO 14; CALCIUM 9.4 MG/DL (8.5-10.1); CARBON DIOXIDE 20 MMOL/L (21-32); CHLORIDE 103 MMOL/L (98-107); GFR ESTIMATED > 60; GLUCOSE 185 MG/DL (70-105); MAGNESIUM 1.8 MG/DL (1.6-2.4); POTASSIUM 3.7 MMOL/L (3.6-5.0); SODIUM 134 MMOL/L (135-145); TOTAL PROTEIN 8.5 GM/DL (6.4-8.2)
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
[2019-07-18] MEDS ORDERED: NICO-588 (09:38)
--- NOTE | 2019-07-18 09:41 | Diagnostic Imaging Report ---
INDICATION: Left-sided weakness Frontal chest obtained at 0927 a.m. and compared to 06/21/15. Heart and mediastinal silhouette are normal in appearance. The lungs appear clear. There is no pneumothorax or pleural fluid. IMPRESSION: No acute process in the chest. Dictated by: Dictated on workstation # [id number]
[2019-07-18 10:11] LABS: BILIRUBIN,URINE NEGATIVE (NEGATIVE); CLARITY,URINE CLEAR; COLOR,URINE YELLOW; GLUCOSE, URINE (UA) NEGATIVE (NEGATIVE); KETONES,URINE NEGATIVE (NEGATIVE); LEUKOCYTE ESTERASE ,URINE NEGATIVE (NEGATIVE); NITRITE,URINE NEGATIVE (NEGATIVE); PROTEIN,URINE NEGATIVE (NEGATIVE)
[2019-07-18 10:17] LABS: BACTERIA,URINE NEGATIVE /HPF; SQUAMOUS EPITHELIAL CELL,UR RARE /HPF
[2019-07-18 10:52] LABS: AMPHETAMINE SCREEN, URINE NEGATIVE (NEGATIVE); BARBITURATE SCREEN URINE NEGATIVE (NEGATIVE); BENZODIAZEPINES SCREEN URINE NEGATIVE (NEGATIVE); CANNABINOID SCREEN, URINE POSITIVE (NEGATIVE); COCAINE SCREEN URINE NEGATIVE (NEGATIVE); METHAMPHETAMINE SCREEN URINE S NEGATIVE (NEGATIVE); OPIATE SCREEN URINE NEGATIVE (NEGATIVE)
[2019-07-18 10:53] LABS: METHADONE STAT NEGATIVE (NEGATIVE); OXYCODONE STAT NEGATIVE (NEGATIVE); PROPOXYPHENE STAT NEGATIVE (NEGATIVE); TRICYCLIC ANTIDEPRESSANTS SCRE POSITIVE (NEGATIVE)
--- NOTE | 2019-07-18 11:04 | NUR ---
[facility] HERE TO TRANSFER PT
[2019-07-18 11:15] VITALS: BP 114/67
== END 2019-07-18 11:15 | disposition short-term general hospital (02) ==
LOC: EDUNIT# 08:48 → ER 08:49
DX: I62.9 Nontraumatic intracranial hemorrhage, unspecified (principal); E11.9 Type 2 diabetes mellitus without complications; J45.909 Unspecified asthma, uncomplicated; K21.9 Gastro-esophageal reflux disease without esophagitis; F41.9 Anxiety disorder, unspecified; F31.9 Bipolar disorder, unspecified; D64.9 Anemia, unspecified; B19.20 Unspecified viral hepatitis C without hepatic coma; F17.210 Nicotine dependence, cigarettes, uncomplicated; Z85.828 Personal history of other malignant neoplasm of skin; Z79.4 Long term (current) use of insulin; Z88.0 Allergy status to penicillin; Z87.440 Personal history of urinary (tract) infections
CPT/HCPCS: 36415; 70450; 71045; 80053; 80306; 80320; 81000; 82962; 83735; 84484; 84703; 85025; 85379; 85610; 85730; 93005; 93041

== ENCOUNTER → 2020-11-19 | Outpatient (CLI) | payer MEDICAID, OTHER ==
[~2020-11-19] MED LIST changes: +ACHYD1T PO; -HYDR-3820 PO; +NICO-685; +QUET50TA22 PO; -QUET50TA55 PO
--- NOTE | 2020-11-19 16:12 | Diagnostic Imaging Report ---
PROCEDURE: MR imaging of the brain without contrast. TECHNIQUE: Multiplanar, multisequence MR imaging of the brain was performed without contrast. INDICATION: Increased left hand and arm weakness. Headaches. History of prior stroke. COMPARISON: 07/18/2019. Findings: No acute ischemia, mass, or hemorrhage. Old blood products are visualized in the right thalamus representing prior hemorrhagic lacunar infarct. The ventricles, cortical sulci, and basilar cisterns are symmetric and unremarkable. The sellar and suprasellar regions have a normal appearance. The brainstem and posterior fossa are unremarkable. The paranasal sinuses and mastoid air cells demonstrate normal signal characteristics. The globes and orbits are symmetric and unremarkable. The scalp and calvarium have a normal appearance. Impression: 1. No acute ischemia, mass, or hemorrhage. 2. Findings representing sequelae of prior hemorrhagic lacunar infarct involving the right thalamus. Dictated by: Dictated on workstation # [id number]
== END ==
LOC: RAD 13:15
PROVIDERS: ATTEND Physician Assistant
DX: G44.309 Post-traumatic headache, unspecified, not intractable (principal); I62.9 Nontraumatic intracranial hemorrhage, unspecified; G56.92 Unspecified mononeuropathy of left upper limb; G57.92 Unspecified mononeuropathy of left lower limb
CPT/HCPCS: 70551

== ENCOUNTER 2021-06-07 12:18 | Emergency (ER) | payer MEDICAID ==
[~2021-06-07] VITALS: Ht 170.2 cm; Wt 54.4 kg
[~2021-06-07 12:18] MED LIST changes: +CYCL10TA25 PO; -CYCL10TA9 PO; -QUET50TA22 PO; +QUET50TA23 PO; -SULF1TAB35 PO; +SULF1TAB38 PO
--- NOTE | 2021-06-07 13:14 | ED General ---
General Chief Complaint: General Problems/Pain Stated Complaint: HAND SWELLING;FEET SWELLING Source of Information: Patient Exam Limitations: No Limitations History of Present Illness Date Seen by Provider: Jun 07, 2021 Time Seen by Provider: 13:13 Initial Comments To ER by private vehicle with reports of intermittent swelling of her hands and feet for quite some time, shortness of breath, bilateral flank pain, urinary frequency. She is a diabetic. Timing/Duration: Intermittent Severity: Moderate Associated Systoms: Denies Symptoms Allergies and Home Medications Allergies Coded Allergies: Penicillins (Verified Allergy, Unknown, RECEIVED ROCEPHIN W/O PROBLEMS, 06/20/15) PT STATES SHE LOSES HER AIRWAY WHEN GIVEN PCN Patient Home Medication List Home Medication List Reviewed: Yes Insulin Aspart (Novolog Flexpen) 300 Units/3 Ml Solution, SQ UD, (Reported) Entered as Reported by: TK HERNANDEZ on 06/20/15 1404 Insulin Glargine,Hum.rec.anlog (Lantus Solostar) 100 Unit/1 Ml Insuln.pen, 20 UNITS SQ HS, (Reported) Entered as Reported by: TK HERNANDEZ on 06/20/15 1404 Methocarbamol (Methocarbamol) 750 Mg Tablet, 750 MG PO Q6-8HR Prescribed by: ELIZABETH MURRAY on 06/07/21 1421 Naproxen (Naproxen) 500 Mg Tablet, 500 MG PO Q12H PRN for PAIN-MODERATE (5-7) Prescribed by: ELIZABETH MURRAY on 06/07/21 1421 Nicotine (Nicotine Patch) 1 Each Patch.td24, (Reported) Entered as Reported by: YOSHI BENEDICT on 07/18/19 0938 Quetiapine Fumarate (Seroquel) 100 Mg Tablet, 100 MG PO HS, (Reported) Entered as Reported by: CONNER BELLO on 08/30/15 1022 Review of Systems Review of Systems Constitutional: see HPI EENTM: see HPI Respiratory: see HPI, short of breath Cardiovascular: no symptoms reported Genitourinary: see HPI Musculoskeletal: no symptoms reported Skin: no symptoms reported Psychiatric/Neurological: No Symptoms Reported Hematologic/Lymphatic: No Symptoms Reported Past [id number]-Uefddz Hx Patient Social History Tobacco Use?: Yes Tobacco type used: Cigarettes Smoking Status: Current Everyday Smoker Smokeless Tobacco Frequency: Never a User Use of E-Cig and/or Vaping [place]ner: Never a User Substance use?: No Alcohol Use?: Yes Alcohol Frequency: Daily Pt feels they are or have been: No Immunizations Up To Date Tetanus Booster (TDap): Unknown Seasonal Allergies Seasonal Allergies: No Past Medical History Surgeries: Yes (cyst removal, LAP RIGHT REMOVAL OF ADRENAL MASS, RIGHT OPHORECTOMY) Section, Gallbladder Respiratory: Yes (ASTHMA) Asthma Currently Using CPAP: No Currently Using BIPAP: No Cardiac: No (MURMUR CHILD) Neurological: Yes ("nerve pain") Reproductive Disorders: No Female Reproductive Disorders: Ovarian Cyst Sexually Transmitted Disease: No HIV/AIDS: No UTI-Chronic Gastrointestinal: Yes Gastroesophageal Reflux, Hepatitis Musculoskeletal: No Arthritis Endocrine: Yes Diabetes, Insulin dep Loss of Vision: Denies Hearing Impairment: Denies Cancer: Yes Skin Psychosocial: Yes (history of substance abuse) Anxiety, Bipolar Integumentary: No Blood Disorders: Yes (ANEMIA/HEPATITIS C ) Adverse Reaction/Blood Tranf: No Family Medical History Asthma 19 FATHER (COPD) G8 BROTHER (COPD) Completed stroke G8 SISTER Diabetes mellitus 19 FATHER 19 MOTHER G8 BROTHER G8 SISTER Gout 19 MOTHER Seizure disorder G8 SISTER No Pertinent Family Hx, Diabetes Physical Exam Vital Signs Vital Signs - First Documented 06/07/21 12:57 Temp 37.0 Pulse 88 Resp 17 B/P (MAP) 107/68 (81) O2 Delivery Room Air Capillary Refill : Height, Weight, BMI Height: 5'7.00" Weight: 140lbs. 5.0oz. 63.628594tn; 20.00 BMI Method:Stated General Appearance: No Apparent Distress, WD/WN Eyes: Bilateral Eye Normal Inspection, Bilateral Eye PERRL, Bilateral Eye EOMI HEENT: PERRL/EOMI Respiratory: No Accessory Muscle Use, No Respiratory Distress Cardiovascular: Regular Rate, Rhythm, Normal Peripheral Pulses Gastrointestinal: Normal Bowel Sounds, Non Tender, Soft Extremity: Normal Capillary Refill, Normal Inspection; No Swelling; Other (There is no visible swelling to hands or feet) Neurologic/Psychiatric: Alert, Oriented x3 Skin: Normal Color, Warm/Dry Progress/Results/Core Measures Suspected Sepsis SIRS Temperature: Pulse: Respiratory Rate: Laboratory Tests 06/07/21 13:05: White Blood Count 10.2 Blood Pressure / Mean: Laboratory Tests 06/07/21 13:05: Creatinine 0.83, Platelet Count 114L, Total Bilirubin 0.8 Results/Orders Lab Results Laboratory Tests Test 06/07/21 13:05 06/07/21 13:51 Range/Units White Blood Count 10.2 4.3-11.0 10^3/uL Red Blood Count 4.74 3.80-5.11 10^6/uL Hemoglobin 15.5 11.5-16.0 g/dL Hematocrit 43 35-52 % Mean Corpuscular Volume 90 80-99 fL Mean Corpuscular Hemoglobin 33 25-34 pg Mean Corpuscular Hemoglobin Concent 36 32-36 g/dL Red Cell Distribution Width 11.6 10.0-14.5 % Platelet Count 114 L 130-400 10^3/uL Mean Platelet Volume 13.5 H 9.0-12.2 fL Immature Granulocyte % (Auto) 0 % Neutrophils (%) (Auto) 76 H 42-75 % Lymphocytes (%) (Auto) 18 12-44 % Monocytes (%) (Auto) 5 0-12 % Eosinophils (%) (Auto) 1 0-10 % Basophils (%) (Auto) 1 0-10 % Neutrophils # (Auto) 7.7 1.8-7.8 10^3/uL Lymphocytes # (Auto) 1.8 1.0-4.0 10^3/uL Monocytes # (Auto) 0.5 0.0-1.0 10^3/uL Eosinophils # (Auto) 0.1 0.0-0.3 10^3/uL Basophils # (Auto) 0.1 0.0-0.1 10^3/uL Immature Granulocyte # (Auto) 0.0 0.0-0.1 10^3/uL Percent Immature Platelet Fraction 15.1 H 0.0-7.6 % Sodium Level 135 135-145 MMOL/L Potassium Level 3.1 L 3.6-5.0 MMOL/L Chloride Level 102 98-107 MMOL/L Carbon Dioxide Level 23 21-32 MMOL/L Anion Gap 10 5-14 MMOL/L Blood Urea Nitrogen 7 7-18 MG/DL Creatinine 0.83 0.60-1.30 MG/DL Estimat Glomerular Filtration Rate 77 BUN/Creatinine Ratio 8 Glucose Level 190 H 70-105 MG/DL Calcium Level 8.8 8.5-10.1 MG/DL Corrected Calcium 8.9 8.5-10.1 MG/DL Total Bilirubin 0.8 0.1-1.0 MG/DL Aspartate Amino Transf (AST/SGOT) 39 H 5-34 U/L Alanine Aminotransferase (ALT/SGPT) 53 0-55 U/L Alkaline Phosphatase 45 40-136 U/L B-Type Natriuretic Peptide 10.7 <100.0 PG/ML Total Protein 7.7 6.4-8.2 GM/DL Albumin 3.9 3.2-4.5 GM/DL Thyroid Stimulating Hormone (TSH) 0.35 0.35-4.94 UIU/ML Free Thyroxine 0.96 0.70-1.48 NG/DL Serum Test, Qualitative NEGATIVE NEGATIVE Urine Color YELLOW Urine Clarity CLEAR Urine pH 6.0 5-9 Urine Specific [place] <=1.005 1.016-1.022 Urine Protein NEGATIVE NEGATIVE Urine Glucose (UA) NEGATIVE NEGATIVE Urine Ketones NEGATIVE NEGATIVE Urine Nitrite NEGATIVE NEGATIVE Urine Bilirubin NEGATIVE NEGATIVE Urine Urobilinogen 0.2 < = 1.0 MG/DL Urine Leukocyte Esterase NEGATIVE NEGATIVE Urine RBC (Auto) NEGATIVE NEGATIVE Urine RBC NONE /HPF Urine WBC NONE /HPF Urine Squamous Epithelial Cells 0-2 /HPF Urine Crystals NONE /LPF Urine Bacteria NEGATIVE /HPF Urine Casts NONE /LPF Urine Mucus NEGATIVE /LPF Urine Culture Indicated NO Urine Opiates Screen NEGATIVE NEGATIVE Urine Oxycodone Screen NEGATIVE NEGATIVE Urine Methadone Screen NEGATIVE NEGATIVE Urine Propoxyphene Screen NEGATIVE NEGATIVE Urine Barbiturates Screen NEGATIVE NEGATIVE Ur Tricyclic Antidepressants Screen NEGATIVE NEGATIVE Urine Phencyclidine Screen NEGATIVE NEGATIVE Urine Amphetamines Screen NEGATIVE NEGATIVE Urine Methamphetamines Screen NEGATIVE NEGATIVE Urine Benzodiazepines Screen NEGATIVE NEGATIVE Urine Cocaine Screen NEGATIVE NEGATIVE Urine Cannabinoids Screen POSITIVE H NEGATIVE My Orders Orders - ELIZABETH MURRAY APRN Thyroid Stimulating Hormone (06/07/21 13:10) Free T4 (Free Thyroxine) (06/07/21 13:10) Cbc With Automated Diff (06/07/21 13:10) Comprehensive Metabolic Panel (06/07/21 13:10) Bnp [place] (06/07/21 13:10) Hcg,Qualitative Serum (06/07/21 13:10) Ua Culture If Indicated (06/07/21 13:13) Drug Screen Stat (Urine) (06/07/21 13:13) Ed Iv/Invasive Line Start (06/07/21 13:16) Ketorolac Injection (Toradol Injection) (06/07/21 14:30) Orphenadrine Inj (Ed Only) (Norflex Inje (06/07/21 14:30) Abdomen, Flat & Upright/Decub (06/07/21 14:31) Vital Signs/I&O 06/07/21 12:57 Temp 37.0 Pulse 88 Resp 17 B/P (MAP) 107/68 (81) O2 Delivery Room Air Capillary Refill : Departure Communication (Admissions) 1441-she now states that she is not been urinating hardly any at all. She states that she can drink a glass of water and not urinate for 4 hours. She also has unintentional weight loss of 30 pounds. She also has not had a bowel movement for 2 weeks. Impression Primary Impression: Flank pain Additional Impressions: Urinary frequency Swelling of extremity Disposition: HOME, SELF-CARE Condition: Stable Departure-Patient Inst. Decision time for Depature: 14:20 Referrals: [facility] (PCP/Family) Primary Care Physician Patient Instructions: Flank Pain ED Add. Discharge Instructions: 1. Take medication as directed for the back pain. Follow-up with primary care for further evaluation of the intermittent hand and feet swelling and urinary frequency. All discharge instructions reviewed with patient and/or family. Voiced understanding. Scripts Naproxen (Naproxen) 500 Mg Tablet 500 MG PO Q12H PRN for PAIN-MODERATE (5-7) for 3 Days, #14 TAB Prov: ELIZABETH MURRAY TELEPHONE ORDER SUPERVISOR 06/07/21 Methocarbamol (Methocarbamol) 750 Mg Tablet 750 MG PO Q6-8HR for Back Pain, #14 TAB Prov: ELIZABETH MURRAY APRN 06/07/21 ELIZABETH MURRAY APRN Jun 07, 2021 13:14
[2021-06-07 13:19] LABS: EOSINOPHILS # (AUTO) 0.1 10^3/uL (0.0-0.3); EOSINOPHILS % (AUTO) 1 % (0-10); MEAN CORPUSCULAR VOLUME 90 fL (80-99); NEUTROPHILS % (AUTO) 76 % (42-75)
[2021-06-07 13:21] LABS: BASOPHILS # (AUTO) 0.1 10^3/uL (0.0-0.1); BASOPHILS % (AUTO) 1 % (0-10); HEMATOCRIT 43 % (35-52); HEMOGLOBIN 15.5 g/dL (11.5-16.0); LYMPHOCYTES # (AUTO) 1.8 10^3/uL (1.0-4.0); LYMPHOCYTES % (AUTO) 18 % (12-44); MEAN CORPUSCULAR HEMOGLOBIN 33 pg (25-34); MEAN CORPUSCULAR HGB CONC 36 g/dL (32-36); MEAN PLATELET VOLUME 13.5 fL (9.0-12.2); MONOCYTES # (AUTO) 0.5 10^3/uL (0.0-1.0); MONOCYTES % (AUTO) 5 % (0-12); NEUTROPHILS # (AUTO) 7.7 10^3/uL (1.8-7.8); PLATELET COUNT 114 10^3/uL (130-400); WHITE BLOOD COUNT 10.2 10^3/uL (4.3-11.0)
[2021-06-07 13:37] LABS: ALBUMIN 3.9 GM/DL (3.2-4.5); POTASSIUM 3.1 MMOL/L (3.6-5.0)
[2021-06-07 13:38] LABS: CALCIUM 8.8 MG/DL (8.5-10.1)
[2021-06-07 13:39] LABS: TOTAL PROTEIN 7.7 GM/DL (6.4-8.2)
[2021-06-07 13:41] LABS: BILIRUBIN,TOTAL 0.8 MG/DL (0.1-1.0)
[2021-06-07 13:43] LABS: CREATININE SERUM 0.83 MG/DL (0.60-1.30)
[2021-06-07 13:57] LABS: BILIRUBIN,URINE NEGATIVE (NEGATIVE); CLARITY,URINE CLEAR; COLOR,URINE YELLOW; GLUCOSE, URINE (UA) NEGATIVE (NEGATIVE); KETONES,URINE NEGATIVE (NEGATIVE); LEUKOCYTE ESTERASE ,URINE NEGATIVE (NEGATIVE); NITRITE,URINE NEGATIVE (NEGATIVE); PROTEIN,URINE NEGATIVE (NEGATIVE)
[2021-06-07 14:06] LABS: FREE T4 (FREE THYROXINE) 0.96 NG/DL (0.70-1.48)
[2021-06-07 14:10] LABS: BACTERIA,URINE NEGATIVE /HPF; SQUAMOUS EPITHELIAL CELL,UR 0-2 /HPF
[2021-06-07 14:11] LABS: AMPHETAMINE SCREEN, URINE NEGATIVE (NEGATIVE); BARBITURATE SCREEN URINE NEGATIVE (NEGATIVE); BENZODIAZEPINES SCREEN URINE NEGATIVE (NEGATIVE); CANNABINOID SCREEN, URINE POSITIVE (NEGATIVE); COCAINE SCREEN URINE NEGATIVE (NEGATIVE); METHADONE STAT NEGATIVE (NEGATIVE); METHAMPHETAMINE SCREEN URINE S NEGATIVE (NEGATIVE); OPIATE SCREEN URINE NEGATIVE (NEGATIVE); OXYCODONE STAT NEGATIVE (NEGATIVE); PROPOXYPHENE STAT NEGATIVE (NEGATIVE); TRICYCLIC ANTIDEPRESSANTS SCRE NEGATIVE (NEGATIVE)
[2021-06-07] MEDS ORDERED: METH-732 PO (14:21)
[2021-06-07] MEDS ORDERED: NAPR-915 PO (14:21)
[2021-06-07] MEDS ORDERED: ORPHENADRINE 60 MG/2 ML (NORFLEX) AMP (ED ONLY) IV ONE (14:30)
[2021-06-07] MEDS ORDERED: KETOROLAC 30 MG/ML VIAL IVP ONE (14:30)
--- NOTE | 2021-06-07 14:42 | Diagnostic Imaging Report ---
Indication: Abdominal pain. COMPARISON: None. FINDINGS: KUB and upright views of the abdomen demonstrate a nondistended bowel gas pattern. There is no free air or abnormal calcification. Osseous structures are age-appropriate. IMPRESSION: Negative KUB and upright views of the abdomen. Dictated by: Dictated on workstation # [id number]
[2021-06-07 15:05] VITALS: BP 144/80
== END 2021-06-07 15:04 | disposition home or self-care (01) ==
LOC: EDUNIT# 12:18 → ER 12:20
DX: R35.0 Frequency of micturition (principal); R60.9 Edema, unspecified; J45.909 Unspecified asthma, uncomplicated; F31.9 Bipolar disorder, unspecified; E11.9 Type 2 diabetes mellitus without complications; F17.210 Nicotine dependence, cigarettes, uncomplicated; Z79.4 Long term (current) use of insulin; Z79.899 Other long term (current) drug therapy
CPT/HCPCS: 36415; 74019; 80053; 80306; 81000; 83880; 84439; 84443; 84703; 85025